=== PATIENT | female | born 1955 | race Caucasian/White ===

== ENCOUNTER → 2017-01-05 | Outpatient (CLI) | payer BC ==
[~2017-01-05] MED LIST: ASPI-558 PO; CALCIUM; MULT-806 PO; VITAMIN B 12; VITAMIN C; ZINC; [UNRECOGNIZED DRUG - OTHER]
--- NOTE | 2017-01-05 11:38 | DI ---
Indication: ITS.REASON: R19.5 OTHER FECAL ABNORMALITIES PROCEDURE: US GALLBLADDER: Encounter: Initial Comparison: None Technique: Grayscale and color Doppler sonographic imaging of the right upper quadrant of the abdomen was performed. Findings: Hepatic parenchyma is echogenic without evidence for focal mass. The gallbladder shows a prominent shadowing 1.7 cm gallstone near the neck. No wall thickening or pericholecystic fluid. Sonographic Bejarano's sign was reportedly negative. Both the intra and extrahepatic biliary system are of normal caliber with the common duct measuring 3 mm in dimension. Visualized portions of the head and body of the pancreas are unremarkable. The right kidney is present without collecting system dilatation. The right kidney measures 9.9 cm in length. Impression: 1. Cholelithiasis without sonographic evidence of acute cholecystitis. 2. Hepatic steatosis. .
== END ==
LOC: IMA 10:55
PROVIDERS: ATTEND Family Medicine
DX: R19.5 Other fecal abnormalities (principal); K80.80 Other cholelithiasis without obstruction; K76.0 Fatty (change of) liver, not elsewhere classified